=== PATIENT | male | born 1965 | race Caucasian/White ===

== ENCOUNTER 2024-04-01 14:11 | Emergency (ER) | payer BC, SELFPAY ==
[2024-04-01 14:23] VITALS: BP 115/66; PULSE 73; RESP 16; TEMP 36.5; O2SAT 99
--- NOTE | 2024-04-01 14:31 | ED_ITS ---
HPI - Skin/Abscess/Foreign Bdy General Chief complaint: Skin/Abscess/Foreign Body Stated complaint: RASH ON HIP Time Seen by Provider: 04/01/24 14:32 Source: patient and RN notes reviewed Mode of arrival: ambulatory Limitations: no limitations History of Present Illness HPI narrative: 59-year-old male presents with concern for rash to his left buttock that is been there for about 5 days. Reports that started off as a small red bump but it is gotten larger. Reports it is tender to touch and slightly itchy. He cleaned it with peroxide and he has been using Neosporin and hydrocortisone. He denies fever, body aches, chills, sweats. Reports that time sirs been slight serous drainage. Reports he travels a lot and he has been recently on airplanes in hotels. MD complaint: rash Related Data Home Medications ?Medication ?Instructions ?Recorded ?Confirmed ?Last Taken ?Type atorvastatin 80 mg tablet 40 mg PO QPM 04/01/24 04/01/24 Unknown History gemfibrozil 600 mg tablet 600 mg PO DAILY 04/01/24 04/01/24 Unknown History insulin degludec 100 unit/mL (3 58 unit subcut Q24H 04/01/24 04/01/24 Unknown History mL) subcutaneous pen (Tresiba FlexTouch U-100 insulin) tirzepatide 7.5 mg/0.5 mL 7.5 mg subcut WEEKLY 04/01/24 04/01/24 Unknown History subcutaneous pen injector (Mounjaro) Allergies Allergy/AdvReac Type Severity Reaction Status Date / Time No Known Allergies Allergy Verified 04/01/24 14:19 Review of Systems Review of Systems: CONSTITUTIONAL: Denies malaise, chills, sweats, or fever. EYES: Denies redness, or discharge. ENT: Denies rhinorrhea, congestion, swollen lips, swollen tongue CARDIOVASCULAR: Denies chest pain, palpitations, or edema. RESPIRATORY: Denies cough or dyspnea. GASTROINTESTINAL: Denies abdominal pain, nausea, vomiting SKIN: Reports rash to the left buttock MUSCULOSKELETAL: Denies joint pain or myalgia. NEUROLOGIC: Denies headache. All systems reviewed & are unremarkable except as noted in HPI and below PMFSH Comments At time of signature, agree with nursing past medical, surgical, social and family history. There is no relevant family history pertinent to the presenting complaint Exam Narrative: GENERAL: Well-appearing, well-nourished, and in no acute distress. HEAD: Normocephalic, atraumatic. EYES: PERRLA, conjunctivae clear, and EOMI. ENT: Mucous membranes moist. Oropharynx without edema, erythema or lesions. NECK: Supple. No lymphadenopathy CHEST: Clear to auscultation. No respiratory distress. HEART: Regular rate and rhythm. SKIN: Warm, dry. Approximately 8 cm raised confluent geographic pattern with ecchymosis noted to the left buttock on top of and surrounded by another 2 cm of erythema, edema, induration. Two small areas of scabbing or noted. NEURO: Alert and oriented x3. PSYCH: Normal mood and affect Course Course Emergency Course: Patient is aware of diagnosis, understands and agrees to treatment plan. Anticipatory guidance given. Patient agrees to follow-up as directed and is aware of reasons to seek care at the emergency department. Portions of this record may have been created with voice recognition software Level of Care: Express Care Visit Vital Signs Vital signs: Vital Signs Temperature 97.7 F 04/01/24 14:23 Pulse Rate 73 04/01/24 14:23 Respiratory Rate 16 04/01/24 14:23 Blood Pressure 115/66 04/01/24 14:23 Pulse Oximetry 99 04/01/24 14:23 Temperature 97.7 F 04/01/24 14:23 Pulse Rate 73 04/01/24 14:23 Respiratory Rate 16 04/01/24 14:23 Blood Pressure 115/66 04/01/24 14:23 Pulse Oximetry 99 04/01/24 14:23 Reviewed. MDM - Skin/Abscess/Foreign Bdy MDM Narrative Medical decision making narrative: Does not appear at this time to be erythema multiforme, bullous, SJS, TEN; no evidence at this time to suggest RMSF, endocarditis or Lyme disease; patient looks well, nontoxic and is tolerating oral intake; no neurologic signs or symptoms; no headache, photophobia or neck pain; afebrile; appropriate for initial outpatient treatment; discussed the importance of follow-up, patient agrees; question, viral exanthema, contact dermatitis, allergic dermatitis, eczema, urticaria, [ xx ]. No soft palate or uvula edema, no tongue, lip edema or other mucosal involvement, no respiratory compromise, no stridor, no wheezing, no wheezing, no history of syncope, no hypotension, no nausea, vomiting, or diarrhea. Instructed patient to go to nearest ER immediately for any worsening symptoms including but not limited to: fever, spreading rash, pain, sore throat, headache, dizziness, chest pain, trouble breathing, or any symptoms concerning to the patient. Critical Care Time Critical Care Time Critical Care Time: No Discharge Plan Discharge Clinical Impression: Cellulitis, Acute eruption of skin Patient Disposition: Home, Self-Care Condition: Stable Instructions: Cellulitis (ED) Additional Instructions: Please follow up with your Primary Care Doctor within 48-72 hours - call for an appointment. Rest and elevate affected area; apply moist heat 3-4 times daily for 10-15 minutes. Take Motrin 600mg every 8 hours with food for pain. Please take Antibiotics as directed. If you experience any worsening redness, swelling, streaking (red lines), fever or chills please go to the ER Patient Language: [place] Citizen Prescriptions: New doxycycline monohydrate 100 mg tablet 100 mg PO BID 7 Days Qty: 14 0RF No Action atorvastatin 80 mg tablet 40 mg PO QPM insulin degludec [Tresiba FlexTouch U-100] 100 unit/mL (3 mL) insulin pen 58 unit SUBCUT Q24H Mounjaro 7.5 mg/0.5 mL pen injector 7.5 mg SUBCUT WEEKLY gemfibrozil 600 mg tablet 600 mg PO DAILY Follow-up/Referrals: Shonda,Paul [Other] Time of Disposition: 14:41
== END 2024-04-01 14:44 | disposition home or self-care (01) ==
PROVIDERS: Emergency Provider Nurse Practitioner
DX: L03.317 Cellulitis of buttock (principal); R21 Rash and other nonspecific skin eruption; E11.9 Type 2 diabetes mellitus without complications; Z79.4 Long term (current) use of insulin
CPT/HCPCS: 99203; G0463

== ENCOUNTER 2024-04-14 09:19 | Emergency (ER) | payer BC, SELFPAY ==
[2024-04-14 09:35] VITALS: BP 147/69; PULSE 63; RESP 16; TEMP 36.8; O2SAT 97
[2024-04-14 09:38] VITALS: BP 147/69; PULSE 62; RESP 16; TEMP 37; O2SAT 96
--- NOTE | 2024-04-14 10:23 | ED.ANIMALBIT ---
HPI - Animal Bite General Chief Complaint: Animal Bite Stated Complaint: I think I have an infection Time Seen by Provider: 04/14/24 09:42 Source: patient Mode of arrival: ambulatory Limitations: no limitations History of Present Illness HPI narrative: This is a 59 year old male that presents to the ER for an infection to the left buttock. Reports he was seen at urgent care and started on Doxycycline. He took this for one week with improvement. Reports he still has an area of redness. Denies fevers. Related Data Home Medications ?Medication ?Instructions ?Recorded ?Confirmed ?Last Taken ?Type atorvastatin 80 mg tablet 40 mg PO QPM 04/01/24 04/01/24 Unknown History gemfibrozil 600 mg tablet 600 mg PO DAILY 04/01/24 04/01/24 Unknown History insulin degludec 100 unit/mL (3 58 unit subcut Q24H 04/01/24 04/01/24 Unknown History mL) subcutaneous pen (Tresiba FlexTouch U-100 insulin) tirzepatide 7.5 mg/0.5 mL 7.5 mg subcut WEEKLY 04/01/24 04/01/24 Unknown History subcutaneous pen injector (Mounjaro) Allergies Allergy/AdvReac Type Severity Reaction Status Date / Time No Known Allergies Allergy Verified 04/14/24 09:40 Review of Systems Review of Systems: CONSTITUTIONAL: Denies fever SKIN: Reports redness All systems reviewed & are unremarkable except as noted in HPI and below PMFSH Past Medical History Medical History (Updated 04/14/24 @ 12:12 by Afsaneh Clemens PA-C) History of diabetes mellitus Social History Social History (Updated 04/14/24 @ 10:27 by Afsaneh Clemens PA-C) Substance use: never Exam Narrative: GENERAL: Well-appearing, well-nourished, and in no acute distress. HEAD: Normocephalic, atraumatic. EYES: EOMI. CHEST: No respiratory distress. HEART: Regular rate EXTREMITIES: Normal range of motion. No edema. SKIN: Warm, dry, no rash. Left buttock with small area of redness, without central fluctuance to suggest abscess NEURO: No focal deficits. Alert and oriented x3. PSYCH: Normal mood and affect Course Course Emergency Course: Patient updated on his workup and agrees with plan of care Vital Signs Vital signs: Vital Signs Temperature 98.2 F 04/14/24 09:35 Pulse Rate 63 04/14/24 09:35 Respiratory Rate 16 04/14/24 09:35 Blood Pressure 147/69 H 04/14/24 09:35 Pulse Oximetry 97 04/14/24 09:35 Oxygen Delivery Room Air 04/14/24 09:35 Temperature 98.6 F 04/14/24 09:38 Pulse Rate 60 04/14/24 11:34 Respiratory Rate 16 04/14/24 11:34 Blood Pressure 134/63 04/14/24 11:34 Pulse Oximetry 96 04/14/24 11:34 Oxygen Delivery Room Air 04/14/24 09:35 MDM - Animal Bite MDM Narrative Medical decision making narrative: Patient presents to the emergency department for cellulitis. He is afebrile and nontoxic appearing. His vitals are stable. Cbc without leukocytosis. Inflammatory markers are not elevated. Patient is a mild area of cellulitis to the left buttock. No evidence for abscess at this time. He did report improvement with doxycycline, he had finished his week course though. Will continue him on doxycycline. I did send a wound culture today. He was given warnings to return to the ER Differential Diagnosis Differential diagnosis: Likely other (Cellulitis, abscess) Lab Data Attestation: I reviewed the patient's lab results. 04/14/24 10:40 04/14/24 10:40 Labs: Lab Results 04/14/24 Range/Units 10:40 WBC 8.0 (4.5-10.0) K/mm3 RBC 4.67 (4.6-6.20) M/mm3 Hgb 13.8 L (14.0-18.0) g/dL Hct 39.6 L (42.0-52.0) % MCV 84.8 (80-100) fl MCH 29.6 (26-34) pg MCHC 34.8 (32-36) g/dl RDW 12.2 (11.5-14.5) % Plt Count 247 (150-375) k/mm3 MPV 10.0 (7.4-10.4) fl Immature Gran % (Auto) 0.3 (0-0.5) % Neut % (Auto) 61.4 (45.5-73.1) % Lymph % (Auto) 30.6 (18.3-44.2) % [place] % (Auto) 6.4 (2.6-8.5) % Eos % (Auto) 0.8 (0-4.4) % Baso % (Auto) 0.5 (0.2-1.2) % Lymph # (Auto) 2.44 (0.9-3.2) K/mm3 [place] # (Auto) 0.5 (0.1-0.6) K/mm3 Eos # (Auto) 0.1 (0-0.3) K/mm3 Baso # (Auto) 0.0 (0.0-0.1) K/mm3 Abs Immat Gran (auto) 0.02 (0.00-0.031) K/mm3 Absolute Neuts (auto) 4.9 (1.3-6.7) K/mm3 Absolute Nucleated RBC 0.000 (0.0-0.012) K/mm3 Nucleated RBC % 0.0 (0.0-0.2) % ESR 9 (0-20) mm/hr Sodium 139 (137-145) mmol/L Potassium 3.9 (3.4-5.0) mmol/L Chloride 105 (98-107) mmol/L Carbon Dioxide 28 (22-30) mmol/L Anion Gap 6 (4-12) mmol/L BUN 18 (9-20) mg/dL Creatinine 0.59 L (0.7-1.3) mg/dL Estim Creat Clear Calc 127 ml/min Estimated GFR > 60 (59 - ) Glucose 123 H (65-110) mg/dL Calcium 8.9 (8.4-10.2) mg/dL C-Reactive Protein < 0.5 (<1.0) mg/dL Critical Care Time Critical Care Time Critical Care Time: No Discharge Plan Discharge Clinical Impression: Cellulitis Qualifiers: Site of cellulitis: unspecified site Qualified Code(s): L03.90 - Cellulitis, unspecified Patient Disposition: Home, Self-Care Condition: Stable Instructions: Antibiotic Form, Cellulitis (ED) Additional Instructions: Return to the emergency department if you experience fever, increasing redness or swelling of your wound, abnormal drainage from your wound, or any other symptoms that are concerning to you. Apply antibiotic ointment daily. Do not soak the wound. Clean with mild soap and water daily. Take oral antibiotic as prescribed Follow-up with your primary care doctor for wound check Patient Language: [place] Prescriptions: New doxycycline hyclate 100 mg tablet 100 mg PO BID 7 Days Qty: 14 0RF mupirocin [Centany] 2 % ointment 1 applic topical BID 7 Days Qty: 15 0RF No Action atorvastatin 80 mg tablet 40 mg PO QPM insulin degludec [Tresiba FlexTouch U-100] 100 unit/mL (3 mL) insulin pen 58 unit SUBCUT Q24H Mounjaro 7.5 mg/0.5 mL pen injector 7.5 mg SUBCUT WEEKLY gemfibrozil 600 mg tablet 600 mg PO DAILY doxycycline monohydrate 100 mg tablet 100 mg PO BID 7 Days Qty: 14 0RF Follow-up/Referrals: UNKNOWN,DOCTOR [Primary Care Provider] -
[2024-04-14 10:44] VITALS: BP 117/68; PULSE 60; RESP 16; O2SAT 96
[2024-04-14 10:48] LABS: Basophils Percent Auto 0.5 % (0.2-1.2); Eosinophils Absolute Auto 0.1 K/mm3 (0-0.3); Eosinophils Percent Auto 0.8 % (0-4.4); Hematocrit 39.6 % (42.0-52.0); Hemoglobin 13.8 g/dL (14.0-18.0); Immature Granulocyte Absolute 0.02 K/mm3 (0.00-0.031); Immature Granulocyte Percent A 0.3 % (0-0.5); Lymphocytes Absolute Auto 2.44 K/mm3 (0.9-3.2); Lymphocytes Percent Auto 30.6 % (18.3-44.2); Mean Corpuscular HGB Conc 34.8 g/dl (32-36); Mean Corpuscular Hemoglobin 29.6 pg (26-34); Mean Corpuscular Volume 84.8 fl (80-100); Monocytes Absolute Auto 0.5 K/mm3 (0.1-0.6); Monocytes Percent Auto 6.4 % (2.6-8.5); Neutrophils Absolute Auto 4.9 K/mm3 (1.3-6.7); Neutrophils Percent Auto 61.4 % (45.5-73.1); Platelet Count Result 247 k/mm3 (150-375); Red Blood Count 4.67 M/mm3 (4.6-6.20); Red Cell Distribution Width 12.2 % (11.5-14.5)
[2024-04-14 11:12] LABS: Anion Gap 6 mmol/L (4-12); Blood Urea Nitrogen 18 mg/dL (9-20); CRP < 0.5 mg/dL (<1.0); Calcium 8.9 mg/dL (8.4-10.2); Carbon Dioxide 28 mmol/L (22-30); Chloride 105 mmol/L (98-107); Estimated CRCL calculation 127 ml/min; Estimated Glomerular Filt Rate > 60; Glucose 123 mg/dL (65-110); Potassium 3.9 mmol/L (3.4-5.0); Sodium 139 mmol/L (137-145)
[2024-04-14 11:34] VITALS: BP 134/63; PULSE 60; RESP 16; O2SAT 96
[2024-04-14 11:34] LABS: Erythrocyte Sedimentation Rate 9 mm/hr (0-20)
== END 2024-04-14 12:32 | disposition home or self-care (01) ==
PROVIDERS: Emergency Provider Physician Assistant
DX: L03.317 Cellulitis of buttock (principal); E11.9 Type 2 diabetes mellitus without complications; Z79.85 Long-term (current) use of injectable non-insulin antidiabetic drugs; Z79.4 Long term (current) use of insulin; Z79.899 Other long term (current) drug therapy
CPT/HCPCS: 36415; 80048; 85025; 85652; 86140; 87070; 87075; 87205; 99283